=== PATIENT | female | born 1955 | race Hispanic/Latino ===

== ENCOUNTER 2018-01-18 09:52 | Outpatient (CLI) | payer OTHER | END 2018-01-18 09:53 | disposition home or self-care (01) | LOC: BICRAD 09:52 | PROVIDERS: ATTEND Family Medicine | DX: M25.552 Pain in left hip (principal) ==

== ENCOUNTER 2019-07-02 13:03 | Outpatient (CLI) | payer OTHER, SELFPAY ==
--- NOTE | 2019-07-02 14:27 | ULT ---
FOCUSED ULTRASOUND OF THE RIGHT THIGH: 07/02/2019 HISTORY: Right thigh trauma a few months back. Persistent pain. COMPARISON: None. FINDINGS: Focused ultrasound of the right lateral thigh in the area of pain provided. No soft tissue abnormality is seen. No mass or fluid collection. IMPRESSION: Unremarkable focused ultrasound of the right thigh. POS: [facility]
== END 2019-07-02 13:04 | disposition home or self-care (01) ==
LOC: BICULT 13:03
PROVIDERS: ATTEND Family Medicine
DX: M79.651 Pain in right thigh (principal)
CPT/HCPCS: 76999

== ENCOUNTER 2019-09-18 09:44 | Outpatient (CLI) | payer OTHER ==
--- NOTE | 2019-09-18 10:51 | ULT ---
Exam: Transabdominal and endovaginal pelvic ultrasound HISTORY:Bowel pressure COMPARISON: None TECHNIQUE: Transabdominal and endovaginal imaging of the pelvis is performed. Ovaries are interrogate d with grayscale, color flow, Doppler imaging and spectral wave form analysis FINDINGS: Uterus: No myometrial masses. Uterus measurin.9 x 4.0 x 3.1 cm. Endometrium: Homogeneous echotexture., Incomplete and limited evaluation endometrium. Endometrium diameter: 0.4 cm. . Free fluid: None Right ovary: Normal echotexture Right ovary measurement: 1.1 x 0.8 x 1.0 cm Left ovary: Normal echotexture. Left ovary measurements: 1.4 x 1.7 x 0.9 cm Ovarian Doppler: There is vascular flow to the left and right ovary. IMPRESSION: Incomplete and limited evaluation the endometrium. Otherwise, unremarkable pelvic ultraso und
--- NOTE | 2019-09-18 11:00 | ULT ---
ULTRASOUND ABDOMEN: HISTORY: Abdominal pain and pressure. FINDINGS: The liver demonstrates mildly increased echogenicity consistent with fatty infiltration without focal mass or intrahepatic ductal dilatation. There are hyperechoic foci in the spleen consistent with gr anulomas. NO gallstones, gallbladder wall thickening, or pericholecystic fluid is identified. The c ommon duct measures 3 mm in diameter. No hydronephrosis is seen on either side. There is a 3.3 cm c yst arising from the left kidney. The visualized portions of the pancreas, aorta, and IVC are unrema rkable. No free fluid is seen. IMPRESSION: 1. Mild fatty infiltration of the liver. 2. Splenic granulomas. 3. Left renal cyst. POS: [facility]
== END 2019-09-18 09:45 | disposition home or self-care (01) ==
LOC: ULT 09:44 → BICULT 09:45
PROVIDERS: ATTEND Nurse Practitioner Family
DX: R10.9 Unspecified abdominal pain (principal); K76.0 Fatty (change of) liver, not elsewhere classified; N28.1 Cyst of kidney, acquired; L92.8 Other granulomatous disorders of the skin and subcutaneous tissue; D73.89 Other diseases of spleen
CPT/HCPCS: 76856; 93975

== ENCOUNTER 2021-03-03 14:03 | Outpatient (CLI) | payer OTHER | END 2021-03-03 14:04 | disposition home or self-care (01) | LOC: BICMAMMO 14:03 | PROVIDERS: ATTEND Family Medicine | DX: Z12.31 Encounter for screening mammogram for malignant neoplasm of breast (principal); Z98.82 Breast implant status | CPT/HCPCS: 77063; 77067 ==

== ENCOUNTER 2024-02-17 08:55 | Emergency (ER) | payer SELFPAY ==
[2024-02-17] MEDS ORDERED: Ketorolac Tromethamine 30 MG (1 mL) VIAL ONE (10:08)
[2024-02-17] MEDS ORDERED: Orphenadrine Citrate 60 MG/2 ML VIAL ONE (10:08)
[2024-02-17] MEDS ORDERED: HYDROcodone/Acetaminophen 7.5/325 mg Tablet ONE (11:14)
== END 2024-02-17 12:22 | disposition home or self-care (01) ==
LOC: ERS 08:55
DX: M54.50 Low back pain, unspecified (principal); I10 Essential (primary) hypertension; E03.9 Hypothyroidism, unspecified; Z79.899 Other long term (current) drug therapy
CPT/HCPCS: 96372; 99282; J1885; J2360